=== PATIENT | male | born 1970 | race Caucasian/White ===

== ENCOUNTER 2016-10-01 06:01 | Observation (INO) | payer OTHER ==
--- NOTE | ~2016-10-01 | CN ---
Consultation Report [facility] [address] [place]. [address] NAME: KYUNG DOUGLAS : 70 STATUS : ADM Tima PAT#: [id number] AGE: 46 ADM/REG DATE : 10/01/16 MR#: [id number] REPORT SERV DATE: 10/02/16 DICTATED BY: DATE: REPORT STATUS : Draft TRANSCRIBED BY: MODL DATE: 10/01/16 DATE OF CONSULTATION: 10/01/2016 REASON FOR CONSULTATION: Unresolved back pain status post ablation. IDENTIFYING DATA: PCP is Dr. Marcio Saavedra. Cardiology is Dr. Salinas. GI is Dr. Hays. HISTORY OF PRESENT ILLNESS: This is a 46-year-old male, who was admitted for ablation today with a history of paroxysmal AFib. The patient has been on Eliquis and Rythmol. The patient has extensive history of ulcerative colitis, esophageal ulcers, renal calculi. His diagnosis of AFib was made in 2014. The patient is complaining of lumbar pain bilaterally from his lower back down through the top of his hips, right greater than left. The pain is continuous, 10/10 but exacerbates and waves. The patient states he is not having any nausea at present, but states that he has had previously. Upon questioning, the patient did state that he has had episodes two to three times a day for the past five days, except for yesterday. Those episodes had been accompanied by nausea. The patient has been treated with multiple doses of pain medications as well as anti-inflammatories and a muscle relaxer prior to stent removal. The patient has also had a CT scan of his abdomen and pelvis with and without contrast, which showed no evidence of retroperitoneal hematoma or other soft- tissue mass. It was also noted that the patient had punctate nonobstructive left-sided nephroliths, but no right-sided renal calculi. There was no ureterolith on either side and no obstruction noted. The patient's history was obtained through careful interview with the patient, his , coupled with review in [employer] and [employer]. PAST MEDICAL HISTORY: Significant for cluster headaches, migraines, minimal memory loss, history of difficulty swallowing which has been resolved following a Fernando fundoplication, DVT in right lower extremity in 2000, history of dysrhythmias, atrial fib diagnosis in 2014, chronic back pain, ulcerative colitis, C difficile in 2012, esophageal ulcers, polyps, hiatal hernia, renal calculi. HOME MEDICATIONS: Apixaban 5 mg twice daily, aspirin 81 mg daily, Tenormin 50 mg daily, Lipitor 40 mg daily, mesalamine 1.2 g daily as needed, Protonix 40 mg daily, MiraLAX one packet daily p.r.n., Rythmol 225 mg three times daily, Metamucil powder once daily at bedtime as needed. ALLERGIES: THE PATIENT IS ALLERGIC TO VANCOMYCIN, WHICH CAUSES HIVES AND MORPHINE, WHICH CAUSES BREATHING PROBLEMS. SOCIAL HISTORY: The patient is and he lives with his . Drinks moderately. Denies illicits. He has a history of dipping snuff one can every 10 days and stopped in November 2015. The patient lifts weights and does yard work. 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 States that he uses a lift and is able to work at cars at chest level. FAMILY HISTORY: Mother has had breast cancer and is still living. Father currently has liver cancer, he had his first SD at age 60 and also has ulcerative colitis with colostomy. Consultation Report [address] [address] NAME: KYUNG DOUGLAS : 70 STATUS : ADM Tima PAT#: [id number] AGE: 46 ADM/REG DATE : 10/01/16 MR#: [id number] REPORT SERV DATE: 10/02/16 DICTATED BY: DATE: REPORT STATUS : Draft TRANSCRIBED BY: MODL DATE: 10/01/16 Siblings health status is unknown. SURGICAL HISTORY: Left shoulder surgery x3, history of right Achilles tendon rupture secondary to MRSA with 16 subsequent surgeries, appendectomy, colonoscopy in 2013, hernia repair, EGD with dilatation x15 prior to Fernando fundoplication on 04/27/2017, which resolved his swallowing issues, left knee surgery, cellulitis, I and D of his left hand and arm, "minimal back surgery in the lumbar area of shaving and COA in 08/2016. REVIEW OF SYSTEMS: Ten-point review of systems is negative, other than HPI. PHYSICAL EXAMINATION: VITAL SIGNS: Blood pressure 151/97, respirations 16, O2 saturation is 100% on room air, temperature is 97.9, and heart rate is 89. GENERAL: Young male, resting in bed, in acute distress. NEURO: Head is atraumatic, normocephalic. The patient is alert and oriented x3. Cranial nerves II through XII are grossly intact. NECK: Neck is supple. Trachea is midline. Neck veins are flat. No obvious thyromegaly or lymphadenopathy. EENT: Sclerae are nonicteric. Pupils are equal, round, reactive to light and accommodation. Mucous membranes are moist. Nares are patent. Extraocular muscles are within normal limits. Tongue is midline without deviation. CHEST: No pain with palpation. LUNGS: Lungs are clear to auscultation anteriorly and posteriorly with normal respiratory effort. CARDIOVASCULAR: S1 and S2 with no obvious murmurs, rubs, or gallops. Carotids with no obvious bruits. ABDOMEN: Soft and nontender with active bowel sounds. No palpable organomegaly. The patient does have scattered scabs on his chest and abdomen, which are healing. EXTREMITIES: Moves all extremities x4. Has bilateral groin sites due to cardiac ablation. No significant edema, clubbing, or cyanosis. Pedal pulses are present and equal bilaterally. SKIN: Skin is warm and dry with previously mentioned scabs on his abdomen and lower chest, normal color and turgor. PSYCH: The patient is anxious. Surgical wound sites dressings are dry and intact to bilateral groin sites, which are soft to palpation. LABORATORY DATA: Sodium is 144, potassium is 3.7, chloride is 109, BUN is 9, creatinine is 1.21, GFR is 83, glucose is 106, calcium is 8.7. WBC is 3.8, hemoglobin 13.1, hematocrit 36.1, platelets 186. CT of the abdomen and pelvis showed 0 retroperitoneal hematoma of the soft tissues with no GI tract obstruction or distended bowel loops. Appendix is not clearly identified. There Consultation Report [place] [place] [id number] [facility] [place]. [address] NAME: KYUNG DOUGLAS : 70 STATUS : ADM Tima PAT#: [id number] AGE: 46 ADM/REG DATE : 10/01/16 MR#: [id number] REPORT SERV DATE: 10/02/16 DICTATED BY: DATE: REPORT STATUS : Draft TRANSCRIBED BY: MODL DATE: 10/01/16 are few left-sided colonic diverticula and sigmoid colonic diverticula. Prostate gland is normal. No filling defect in the dependent aspect of the urinary bladder. Punctate nonobstructive left-sided nephroliths on image 76 series 2 and in the lower pole of image 89. No right-sided calculi. No ureterolith on either side. No bladder calcifications. Mild aortoiliac atherosclerosis without aneurysm. Symmetric appearance to iliopsoas musculature and hip musculature and no evidence of retroperitoneal mass or hematoma. ASSESSMENT AND PLAN: Unresolved back pain status post ablation. Upon discussion with the patient, it is discovered the patient has had similar back pain off and on for five days that has been accompanied by nausea and occasional emesis. The patient states the only time he did not have it was yesterday. Today, the pain has worse and more frequent. It was felt that this is probably a kidney stone, which was noted on CT scan. The patient will be started on tamsulosin to assist in urine flow. We also obtained urine with reflex culture to also assess for rbc's. The patient will be placed on Percocet 10/325 one tablet q.4 hours p.r.n. pain, baclofen 10 mg p.o. t.i.d. p.r.n. back spasms, tramadol 100 mg p.o. q.4 hours p.r.n. mild pain. We are requesting to strain urine and we have ordered a.m. labs, BMP, CBC, and magnesium. We will reassess the patient in the morning. We would like to take the time to thank you for this consultation. We will continue to follow the patient with you until it is time for him to be discharged. Please let us know if we can be of any further assistance. SLC/MODL Dana Robertson NP / [id number] CC: Jessica Lockett M.D.
[~2016-10-01 06:01] MED LIST: *DENIES; ALTA2.5 PO; ASA5GR PO; ASAB PO; ATEN50 PO; AUG875 PO; ELIQUIS 5 MG TAB5 MG PO; LIALDA1.2 GM PO; LORTAB10 PO; METAMUCIL CAN7 OZ PO; MEVACOR40 MG PO; MIRALAX POWDER1 PKT PO; MIRALAXPKT PO; NEXIUM40 PO; PCET PO; PRIN5 PO; RYTHMOL SR225 MG PO; RYTHMOL150 MG PO; SUCR PO; ULTRAM50 PO; VANCOCIN HCL125 MG PO; ZYVOXPO PO
[2016-10-01] MEDS ORDERED: LIPITOR40 PO (06:27)
[2016-10-01] MEDS ORDERED: PROTONIX PO (06:28)
[2016-10-01 06:36] LABS: BASOPHILS 0.2 %; BASOPHILS ABSOLUTE 0.01 10/3/uL (0.0-0.16); EOSINOPHILS 4.9 %; HEMATOCRIT 39.5 % (40.0-51.0); HEMOGLOBIN 14.3 g/dL (13.6-17.8); IMMATURE GRANULOCYTES 0.2 %; IMMATURE GRANULOCYTES ABSOLUTE 0.01 10/3/uL (0.0-0.11); LYMPHOCYTES 43.2 %; LYMPHOCYTES ABSOLUTE 1.78 10/3/uL (0.67-4.30); MANUAL DIFF NO %; MEAN CORPUS HGB CONC 36.2 g/dL (32.0-36.0); MEAN CORPUSCULAR HEMOGLOB 32.2 pg (26.0-34.0); MEAN PLATELET VOLUME 9.6 fL (9.2-13.0); MONOCYTES 8.7 %; MONOCYTES ABSOLUTE 0.36 10/3/uL (0.21-1.20); NEUTROPHILS 42.8 %; NEUTROPHILS ABSOLUTE 1.76 10/3/uL (2.02-8.40); PLATELET COUNT 211 10/3/uL (150-400); RBC DISTRIBUTION WIDTH 13.2 % (12.0-16.0); RED CELL COUNT 4.44 10/6/uL (4.7-6.1); WHITE BLOOD CELLS 4.1 10/3/uL (4.5-10.5)
[2016-10-01 06:49] LABS: BUN (BLOOD UREA NITROGEN) 9 MG/DL (6-23); CALCIUM, SERUM 8.7 MG/DL (8.5-10.4); CHLORIDE, SERUM 109 MMOL/L (96-112); CO2 (CARBON DIOXIDE) 34 MMOL/L (24-34); CREATININE 1.21 MG/DL (0.70-1.30); GFR AFRICAN AMERICAN 83 ML/MIN (>=60); GFR NON AFRICAN AMERICAN 71 ML/MIN (>=60); GLUCOSE, SERUM 106 MG/DL (60-99); POTASSIUM, SERUM 3.7 MMOL/L (3.5-5.3); SODIUM, SERUM 144 MMOL/L (135-148)
[2016-10-01 12:11] LABS: BASOPHILS 0.3 %; BASOPHILS ABSOLUTE 0.01 10/3/uL (0.0-0.16); EOSINOPHILS 4.3 %; EOSINOPHILS ABSOLUTE 0.16 10/3/uL (0.0-0.53); HEMATOCRIT 36.1 % (40.0-51.0); HEMOGLOBIN 13.1 g/dL (13.6-17.8); IMMATURE GRANULOCYTES 0.5 %; IMMATURE GRANULOCYTES ABSOLUTE 0.02 10/3/uL (0.0-0.11); LYMPHOCYTES 47.6 %; LYMPHOCYTES ABSOLUTE 1.79 10/3/uL (0.67-4.30); MANUAL DIFF NO %; MEAN CORPUS HGB CONC 36.3 g/dL (32.0-36.0); MEAN CORPUSCULAR HEMOGLOB 32.1 pg (26.0-34.0); MEAN CORPUSCULAR VOLUME 88.5 fL (80-100); MEAN PLATELET VOLUME 9.3 fL (9.2-13.0); NEUTROPHILS 39.3 %; NEUTROPHILS ABSOLUTE 1.48 10/3/uL (2.02-8.40); PLATELET COUNT 186 10/3/uL (150-400); RBC DISTRIBUTION WIDTH 13.6 % (12.0-16.0); RED CELL COUNT 4.08 10/6/uL (4.7-6.1); WHITE BLOOD CELLS 3.8 10/3/uL (4.5-10.5)
[2016-10-01 22:29] LABS: PARTIAL THROMBO TIME 30.7 SEC (22.5-37.2); PROTIME (NOT ORD) 13.5 SEC (12.0-14.5)
[2016-10-01 23:43] LABS: WBC (NOT ORDERED) (RFLEX) 0 (0-5)
[2016-10-02 00:33] LABS: ASCORBIC ACID (UR NOT ORDER) NEG (NEG); BILIRUBIN, URINE NEGATIVE (NEG); KETONE, URINE NEGATIVE (NEG); LEUKOCYTE ESTERASE(NOT OR NEG (NEG)
[2016-10-02 05:50] LABS: BASOPHILS 0.2 %; BASOPHILS ABSOLUTE 0.01 10/3/uL (0.0-0.16); EOSINOPHILS 3.9 %; EOSINOPHILS ABSOLUTE 0.17 10/3/uL (0.0-0.53); HEMATOCRIT 36.3 % (40.0-51.0); HEMOGLOBIN 13.2 g/dL (13.6-17.8); IMMATURE GRANULOCYTES 0.5 %; IMMATURE GRANULOCYTES ABSOLUTE 0.02 10/3/uL (0.0-0.11); LYMPHOCYTES 33.1 %; LYMPHOCYTES ABSOLUTE 1.45 10/3/uL (0.67-4.30); MEAN CORPUS HGB CONC 36.4 g/dL (32.0-36.0); MEAN CORPUSCULAR HEMOGLOB 31.9 pg (26.0-34.0); MEAN CORPUSCULAR VOLUME 87.7 fL (80-100); MEAN PLATELET VOLUME 9.4 fL (9.2-13.0); MONOCYTES 6.8 %; NEUTROPHILS 55.5 %; NEUTROPHILS ABSOLUTE 2.43 10/3/uL (2.02-8.40); PLATELET COUNT 176 10/3/uL (150-400); RBC DISTRIBUTION WIDTH 13.6 % (12.0-16.0); RED CELL COUNT 4.14 10/6/uL (4.7-6.1); WHITE BLOOD CELLS 4.4 10/3/uL (4.5-10.5)
[2016-10-02 05:55] LABS: BUN (BLOOD UREA NITROGEN) 8 MG/DL (6-23); CALCIUM, SERUM 8.2 MG/DL (8.5-10.4); CHLORIDE, SERUM 111 MMOL/L (96-112); GFR AFRICAN AMERICAN 93 ML/MIN (>=60); GFR NON AFRICAN AMERICAN 80 ML/MIN (>=60); GLUCOSE, SERUM 111 MG/DL (60-99); POTASSIUM, SERUM 3.6 MMOL/L (3.5-5.3); SODIUM, SERUM 145 MMOL/L (135-148)
[2016-10-02 05:58] LABS: CO2 (CARBON DIOXIDE) 29 MMOL/L (24-34)
[2016-10-02 06:08] LABS: MANUAL DIFF NO %
[2016-10-02] MEDS ORDERED: PERCOCET 10/3251 TAB PO (18:26)
[2016-10-02] MEDS ORDERED: ZOFRAN4 PO (18:27)
== END 2016-10-02 18:58 | disposition home or self-care (01) ==
LOC: CORLMH 06:01 → SSU1 06:17
PROVIDERS: Internal Medicine Cardiovascular Disease
PROC: 02583ZZ Destruction of Conduction Mechanism, Percutaneous Approach (ICD-10-PCS; principal; 2016-10-01)
PROC: 02K83ZZ Map Conduction Mechanism, Percutaneous Approach (ICD-10-PCS; 2016-10-01)
PROC: 4A023FZ Measurement of Cardiac Rhythm, Percutaneous Approach (ICD-10-PCS; 2016-10-01)
PROC: 4A0234Z Measurement of Cardiac Electrical Activity, Percutaneous Approach (ICD-10-PCS; 2016-10-01)
DX: I48.0 Paroxysmal atrial fibrillation (principal); I10 Essential (primary) hypertension; K51.90 Ulcerative colitis, unspecified, without complications; M54.9 Dorsalgia, unspecified; K21.9 Gastro-esophageal reflux disease without esophagitis; Z88.5 Allergy status to narcotic agent; Z79.01 Long term (current) use of anticoagulants; Z80.3 Family history of malignant neoplasm of breast; Z80.0 Family history of malignant neoplasm of digestive organs; Z82.49 Family history of ischemic heart disease and other diseases of the circulatory system; Z86.14 Personal history of Methicillin resistant Staphylococcus aureus infection; Z87.442 Personal history of urinary calculi; Z87.891 Personal history of nicotine dependence; Z86.010 Personal history of colon polyps; Z86.718 Personal history of other venous thrombosis and embolism; Z79.82 Long term (current) use of aspirin; Z79.899 Other long term (current) drug therapy; Z88.1 Allergy status to other antibiotic agents; Z90.49 Acquired absence of other specified parts of digestive tract; Z98.890 Other specified postprocedural states
CPT/HCPCS: 74178; 80048; 81001; 83735; 85025; 85347; 85610; 85730; 93005; 93613; 93656; 93662; 96372; 96374; 96375; 96376; A9270-GY; C1732; C1759; C1769; C1781; C1894; G0378; J0583; J1170; J1885; J2250; J2405; J3010; Q9967